=== PATIENT | female | born 2000 | race Hispanic/Latino ===

== ENCOUNTER 2022-01-29 08:41 | Emergency (ER) | payer OTHER, SELFPAY ==
--- NOTE | 2022-01-29 08:44 | ED.URI ---
HPI - URI/Sore Throat General Chief Complaint: Upper Respiratory Infection Stated Complaint: Sore Throat Time Seen by Provider: 01/29/22 08:52 Source: patient, RN notes reviewed and old records reviewed Mode of arrival: ambulatory Limitations: no limitations History of Present Illness HPI Narrative: 21-year-old female presents to the [facility] with complaints of sore throat x3 days. Has had intermittent cough and stuffy nose. Took Claritin one time yesterday. Has taken ibuprofen for her pain. Denies any significant medical or surgical history. Denies fevers, nausea, vomiting or diarrhea. No chest pain or abdominal pain. MD elicited complaint: cough, sore throat and nasal congestion Related Data Allergies Allergy/AdvReac Type Severity Reaction Status Date / Time No Known Allergies Allergy Verified 01/29/22 09:02 Review of Systems Review of Systems: All systems reviewed & are unremarkable except as noted in HPI and below Constitutional: Constitutional: Reports no additional constitutional complaints, Denies chills, Denies fever(s) and Denies headache(s) Eyes: Eyes: Reports no additional eye complaints ENT: Reports as per HPI, Denies vertigo, Denies dizziness, Denies headache(s), Reports nasal congestion and Reports sore throat Cardiovascular: Cardiovascular: Reports no additional cardiovascular complaints, Denies chest pain, Denies syncope, Denies rapid heart rate and Denies dyspnea Respiratory: Respiratory: Reports as per HPI, Reports cough, Denies dyspnea and Denies wheezing Gastrointestinal: Gastrointestinal: Reports no additional gastrointestinal complaints, Denies abdominal pain, Denies diarrhea, Denies nausea and Denies vomiting Musculoskeletal: Musculoskeletal: Reports no additional musculoskeletal complaints and Denies numbness Integumentary/Breasts: Skin/Breast: Reports system reviewed and no additional complaints, except as docu Neurologic: Reports system reviewed and no additional complaints, except as documented, Denies vertigo, Denies dizziness, Denies syncope, Denies headache(s), Denies focal weakness and Denies numbness Psychiatric: Psychiatric: Reports no additional psychiatric complaints Allergic/Immunologic: Allergic/Immunologic: Reports no additional allergic/immunologic complaints and Denies wheezing PMFSH Past Medical History Medical History (Updated 01/29/22 @ 09:17 by Lisa Sorensen APRN) No significant medical problems Surgical History Surgical History (Updated 01/29/22 @ 08:59 by Lisa Sorensen APRN) No pertinent past surgical history Social History Social History (Updated 01/29/22 @ 08:59 by Lisa Sorensen APRN) Living arrangements: with family Occupation/Education: student Gender identity (if verbalized by the patient): Female Comments At the time of my signature, I reviewed and agree with the nursing past medical, surgical, social, and family history. There is no relevant family history pertinent to the patient complaint. Exam Const: General: cooperative, healthy appearing, no acute distress, well developed and alert Nutritional Appearance: well nourished Orientation/consciousness: patient oriented x3 Limitations: no limitations HENMT: Head: normal to inspection Ears: hearing grossly normal bilaterally, external ears normal, EAC's normal, mastoids normal, no periauricular adenopathy and TM abnormal with fluid behind the TM bilateral; not bulging, not erythematous and with no loss of landmarks General nose exam: Normal external nose present, Abnormal mucous membranes and turbinates present boggy bilateral; not erythematous and Nasal discharge present clear Face and sinus: normal facial exam and face symmetric Mouth: Yes Normal oral and palatal mucosa present and Yes lip normal Throat: tonsils normal, uvula midline, posterior oropharynx abnormal cobblestoning; no edema, no erythema and no exudates, postnasal drainage and no uvular edema Eyes: Conjunctivae: conjunctiva
[2022-01-29 08:51] VITALS: BP 119/78; PULSE 77; RESP 16; TEMP 37.3; O2SAT 100
== END 2022-01-29 09:18 | disposition home or self-care (01) ==
PROVIDERS: Emergency Provider Nurse Practitioner; PCP Registered Nurse
DX: J02.9 Acute pharyngitis, unspecified (principal); J30.2 Other seasonal allergic rhinitis
CPT/HCPCS: 87081; 87880; 99213; G0463

== ENCOUNTER 2022-07-29 09:14 | Emergency (ER) | payer OTHER, SELFPAY ==
--- NOTE | ~2022-07-29 | CT_ITS ---
EXAMINATION: CT abdomen pelvis w con DATE: 07/29/2022 10:31 INDICATION: Left lower quadrant abdominal pain and nausea TECHNIQUE: Computed tomography (CT) of the abdomen and pelvis was performed with 100 mL Omnipaque-350 intravenous contrast. Automated exposure control and iterative reconstruction technique were employe d. The dose-length product was 1067.82 mGy-cm. COMPARISON: None FINDINGS: Lung bases are clear. Heart size is normal. No pericardial or pleural effusion. Small region of focal hepatic steatosis at the ligamentum teres. More subtle regions of increased hepatic enhancement or a ttenuation a couple appearing more masslike measuring 2.5 cm and 2.1 cm in segment 8 of the liver and a few of the more geographic appearance in segment 3 along the periphery of the more caudal right he patic lobe. Gallbladder, spleen, pancreas, bilateral adrenal glands and kidneys are normal. Bowels in cluding the appendix are normal. Bladder, anteverted uterus and bilateral adnexa are unremarkable. No free intraperitoneal gas or fluid. No pathologically enlarged abdominal or pelvic lymphadenopathy. B ones are unremarkable. IMPRESSION: 1. No acute intra-abdominal/pelvic process. 2. Heterogeneous attenuation/enhancement of the liver at least partially due to hepatic steatosis how ever a couple of the regions of increased attenuation/enhancement in segment 8 have a more masslike a ppearance and differential would include hemangioma, focal nodular hyperplasia or adenoma. Differenti al would also include metastatic disease although this would be unlikely given patient age and lack o f known history of malignancy. Would recommend further evaluation with follow-up pre and postcontrast MRI. Reviewed, dictated and finalized at location A. IMPRESSION: 1. No acute intra-abdominal/pelvic process. 2. Heterogeneous attenuation/enhancement of the liver at least partially due to hepatic steatosis however a couple of the regions of increased attenuation/enh ancement in segment 8 have a more masslike appearance and differential would in clude hemangioma, focal nodular hyperplasia or adenoma. Differential would also include metastatic disease although this would be unlikely given patient age a nd lack of known history of malignancy. Would recommend further evaluation with follow-up pre and postcontrast MRI.
[2022-07-29 09:18] VITALS: BP 141/71; PULSE 65; RESP 18; TEMP 37.1; O2SAT 100
--- NOTE | 2022-07-29 09:28 | ED.ABDPAIN ---
HPI - Abdominal Pain General Chief Complaint: Abdominal Pain Stated Complaint: Lower Left ABD Pain Time Seen by Provider: 07/29/22 09:15 History of Present Illness HPI narrative: 22-year-old female presents the emergency room for evaluation of left lower quadrant pain that has been present for 3 days. Patient denies any nausea or vomiting diarrhea or constipation. Patient states that she is currently on her menses and has restarted her control after 2years because she has been having intermittent vaginal bleeding for the past couple of months. Patient is not under the care of a PCP or an PUBLIC HEALTH TECHNICIAN. Patient states that the oral contraceptive pills are over 2 years old. Related Data Allergies Allergy/AdvReac Type Severity Reaction Status Date / Time No Known Allergies Allergy Verified 07/29/22 09:52 Review of Systems Review of Systems: CONSTITUTIONAL: Denies fever, chills, or sweats. EYES: Denies visual changes, redness, or discharge. ENT: Denies rhinorrhea, congestion, sore throat, or otalgia. CARDIOVASCULAR: Denies chest pain, palpitations, or edema. RESPIRATORY: Denies cough or dyspnea. GASTROINTESTINAL: Reports left lower quadrant abdominal pain GENITOURINARY: Reports hematuria. SKIN: Denies rash or itching. MUSCULOSKELETAL: Denies back pain, joint pain, or myalgia. NEUROLOGIC: Denies headache, numbness, dizziness, or weakness. PSYCHIATRIC: Denies anxiety or depression. PMFSH Past Medical History Medical History No significant medical problems Surgical History Surgical History No pertinent past surgical history Social History Social History Gender identity (if verbalized by the patient): Female Exam Narrative: GENERAL: Well-appearing, well-nourished, no physical limitations, and in no acute distress. HEAD: Normocephalic, atraumatic. EYES: Conjunctivae normal, PERRLA and EOMI. CHEST: Clear to auscultation. No respiratory distress. No wheezes rales or rhonchi. HEART: Regular rate and rhythm. No murmur heard. Normal peripheral pulses. ABDOMEN: Soft, left lower quadrant tenderness, nondistended, normal active bowel sounds. BACK: No CVA tenderness EXTREMITIES: Normal range of motion. No edema. No clubbing or cyanosis SKIN: Warm, dry, no rash. No noted wounds NEURO: No focal deficits. Alert and oriented x3. MAEW. CN's II-XI intact bilaterally, normal gait PSYCH: Cooperative. Normal mood and affect. Course Vital Signs Vital signs: Vital Signs Temperature 37.1 C 07/29/22 09:18 Pulse Rate 65 07/29/22 09:18 Respiratory Rate 18 07/29/22 09:18 Blood Pressure 141/71 H 07/29/22 09:18 Pulse Oximetry 100 07/29/22 09:18 Oxygen Delivery Room Air 07/29/22 09:18 Temperature 37.1 C 07/29/22 09:18 Pulse Rate 65 07/29/22 09:18 Respiratory Rate 18 07/29/22 09:18 Blood Pressure 141/71 H 07/29/22 09:18 Pulse Oximetry 100 07/29/22 09:18 Oxygen Delivery Room Air 07/29/22 09:18 MDM - Abdominal Pain MDM Narrative Medical decision making narrative: 22-year-old female with dysfunctional uterine bleeding and lower abdominal pain. Patient states that she restarted her oral control without consulting her primary care physician or PUBLIC HEALTH TECHNICIAN first. Source of bleeding is likely due to an anovulatory cycle. CT scan shows hepatic steatosis and couple of regions of a masslike appearance likely hemangioma. MRI was recommended. Will have patient follow-up with her PCP and PUBLIC HEALTH TECHNICIAN for further evaluation Imaging Data Radiologist's impression: Impressions Abdomen/Pelvis CT 07/29/22 11:03 IMPRESSION: 1. No acute intra-abdominal/pelvic process. 2. Heterogeneous attenuation/enhancement of the liver at least partially due to hepatic steatosis however a couple of the regions of increased attenuation/enhancement in segment
[2022-07-29] MEDS: SODIUM CHLORIDE 0.9% IV 1,000 ML 999 ML IV CONT (09:40)
[2022-07-29 09:43] LABS: Basophils Percent Auto 0.3 % (0.2-1.2); Eosinophils Absolute Auto 0.2 K/mm3 (0-0.3); Eosinophils Percent Auto 2.4 % (0-4.4); Hematocrit 39.7 % (37.0-47.0); Hemoglobin 13.1 g/dL (12.0-15.0); Immature Granulocyte Absolute 0.03 K/mm3 (0.00-0.031); Immature Granulocyte Percent A 0.3 % (0-0.5); Lymphocytes Percent Auto 24.3 % (18.3-44.2); Mean Corpuscular Hemoglobin 27.2 pg (26-34); Mean Corpuscular Volume 82.5 fl (80-100); Monocytes Absolute Auto 0.7 K/mm3 (0.1-0.6); Monocytes Percent Auto 6.9 % (2.6-8.5); Neutrophils Absolute Auto 6.2 K/mm3 (1.3-6.7); Neutrophils Percent Auto 65.8 % (45.5-73.1); Platelet Count Result 288 k/mm3 (150-375); Red Blood Count 4.81 M/mm3 (4.2-5.4); Red Cell Distribution Width 12.8 % (11.5-14.5); White Blood Count 9.5 K/mm3 (4.5-10.0)
[2022-07-29 09:46] LABS: Add Urine Microscopic? YES; Appearance Urine Cloudy (Clear); Color Urine Red (Yellow)
[2022-07-29 09:48] LABS: Bilirubin Urine Unable to determine (Negative); Leukocyte Esterase Ur Unable to determine LEU/UL (Negative); Nitrate Urine Unable to determine (Negative); Urobilinogen Urine Unable to determine mg/dL (<2.0)
[2022-07-29 09:49] LABS: Blood Urine 4+ (Negative); Glucose Urine UA Unable to determine mg/dL (Negative); Ketones Urine Unable to determine mg/dL (Negative); Protein Urine Unable to determine mg/dL (Negative)
[2022-07-29 09:51] LABS: RBC Urine >75 /hpf (0-2)
[2022-07-29 10:11] LABS: Alanine Aminotransferase 22 U/L (6-35); Albumin Level 4.5 g/dL (3.5-5.1); Alkaline Phosphatase 97 U/L (38-126); Anion Gap 9 mmol/L (8-16); Aspartate Amino Transferase 21 U/L (14-36); Bilirubin,Total 0.9 mg/dL (0.2-1.3); Blood Urea Nitrogen 16 mg/dL (7-17); Calcium 8.7 mg/dL (8.4-10.2); Carbon Dioxide 24 mmol/L (22-30); Chloride 107 mmol/L (98-107); Estimated CRCL calculation 116 ml/min; Estimated Glomerular Filt Rate > 60; Glucose 103 mg/dL (65-110); Lipase 37 U/L (23-300); Potassium 4.1 mmol/L (3.4-5.0); Sodium 140 mmol/L (137-145)
[2022-07-29 10:44] VITALS: BP 131/66; PULSE 65; RESP 18; O2SAT 100
[2022-07-29 11:45] VITALS: BP 131/68; PULSE 63; RESP 18; O2SAT 100
== END 2022-07-29 11:48 | disposition home or self-care (01) ==
PROVIDERS: Emergency Provider Nurse Practitioner Family; PCP Registered Nurse
DX: N93.8 Other specified abnormal uterine and vaginal bleeding (principal); K76.0 Fatty (change of) liver, not elsewhere classified; R10.9 Unspecified abdominal pain
CPT/HCPCS: 36415; 74177; 80053; 81001; 81025; 83690; 85025; 96360; 99284; J7030; Q9967

== ENCOUNTER 2022-08-08 13:10 | Outpatient (CLI) | payer OTHER, SELFPAY ==
[2022-08-08 13:48] LABS: Beta HCG Quantitative < 2.39 mIU/ML
== END 2022-08-08 13:11 | disposition home or self-care (01) ==
LOC: ANHLAB 13:11
PROVIDERS: PCP Registered Nurse; Visit Provider Student in an Organized Health Care Education/Training Program
DX: N92.6 Irregular menstruation, unspecified (principal)
CPT/HCPCS: 36415; 84702

== ENCOUNTER 2023-08-14 14:02 | Outpatient (CLI) | payer OTHER, SELFPAY ==
[2023-08-14 16:09] LABS: Beta HCG Quantitative < 2.39 mIU/ML
== END 2023-08-14 14:03 | disposition home or self-care (01) ==
LOC: ANHLAB 14:04
PROVIDERS: PCP Registered Nurse; Visit Provider Student in an Organized Health Care Education/Training Program
DX: Z30.9 Encounter for contraceptive management, unspecified (principal)
CPT/HCPCS: 36415; 84702